=== PATIENT | female | born 2005 | race Caucasian/White ===

== ENCOUNTER 2024-06-06 11:27 | Emergency (ER) | payer SELFPAY ==
[~2024-06-06] VITALS: Ht 160 cm; Wt 84.0 kg
[2024-06-06 11:35] VITALS: O2SAT 98
[2024-06-06 11:47] VITALS: BP 102/46; PULSE 89; RESP 16; TEMP 98.5; O2SAT 100
[2024-06-06] MEDS ORDERED: ACET325T52 MT (13:18)
== END 2024-06-06 14:10 | disposition home or self-care (01) ==
LOC: ER 11:27
DX: S63.602A Unspecified sprain of left thumb, initial encounter (principal); X58.XXXA Exposure to other specified factors, initial encounter; Y93.89 Activity, other specified; Y92.89 Other specified places as the place of occurrence of the external cause; Y99.8 Other external cause status
CPT/HCPCS: 29125; 73120; 99283